=== PATIENT | male | born 1965 | race Caucasian/White ===

== ENCOUNTER 2018-10-10 11:22 | Emergency (ER) | payer OTHER ==
[~2018-10-10] VITALS: Ht 172.7 cm; Wt 108.9 kg
[~2018-10-10 11:22] MED LIST: ALPRAZOLAM0.25 MG PO; AZITHROMYCIN250 MG PO; Aspirin PO; BENICAR HCT 401 EACH PO; DEPO-TESTO200 MG/1 M IM; LOPRESSOR25 MG PO; LORATADINE10 MG PO; METFORMIN HCL500 MG PO; PLAVIX75 MG PO; TRICOR145 MG PO
[2018-10-10 12:46] LABS: BILIRUBIN,URINE NEGATIVE (NEGATIVE); CLARITY,URINE HAZY (CLEAR); COLOR,URINE YELLOW (YELLOW); KETONES,URINE NEGATIVE (NEGATIVE); LEUKOCYTE ESTERASE ,URINE NEGATIVE (NEGATIVE); NITRITE,URINE NEGATIVE (NEGATIVE); PROTEIN,URINE DIPSTICK TRACE (NEGATIVE); URINE UROBILINOGEN 0.2 mg/dL (0.2 - 1)
[2018-10-10 12:53] LABS: BACTERIA,URINE FEW /HPF; EPITHELIAL CELLS,URINE FEW /LPF; RBC,URINE 0-5 /HPF (0-5)
[2018-10-10 15:07] LABS: BASOPHILS % 0.4 % (0.0-1.0); EOSINOPHILS # (AUTO) 0.5 (0.0-0.4); EOSINOPHILS % 5.3 % (0.0-6.0); HEMATOCRIT 47.2 % (38.2-49.6); HEMOGLOBIN 14.7 g/dL (14.0-18.0); LYMPHOCYTES # (AUTO) 1.9 (1.0-3.2); LYMPHOCYTES % 21.3 % (18.0-39.1); MEAN CORPUSCULAR HEMOGLOBIN 22.1 pg (28-32); MEAN CORPUSCULAR HGB CONC 31.1 g/dL (31-35); MEAN CORPUSCULAR VOLUME 70.9 fL (81-99); MONOCYTES # (AUTO) 0.8 (0.2-0.8); MONOCYTES % 8.3 % (4.4-11.3); NEUTROPHILS # (AUTO) 5.8 (2.1-6.9); NEUTROPHILS % 63.6 % (38.7-80.0); PLATELET COUNT 360 x10e3/uL (140-360); RED BLOOD COUNT 6.66 x10e6/uL (4.3-5.7); RED CELL DISTRIBUTION WIDTH 18.2 % (11.7-14.4)
[2018-10-10 15:26] LABS: ALANINE AMINOTRANSFERASE 39 IU/L (0-55); ALBUMIN 4.1 g/dL (3.5-5.0); ALKALINE PHOSPHATASE 48 IU/L (40-150); ANION GAP 14.2 mmol/L (8-16); BLOOD UREA NITROGEN 10 mg/dL (7-26); BUN/CREATININE RATIO 9 (6-25); CALCIUM 9.7 mg/dL (8.4-10.2); CARBON DIOXIDE 24 mmol/L (22-29); CHLORIDE 102 mmol/L (98-107); CREATININE, SERUM 1.07 mg/dL (0.72-1.25); EST GLOMERULAR FILTRATION RATE > 60 ML/MIN (60-); GLUCOSE 129 mg/dL (74-118); POTASSIUM 4.2 mmol/L (3.5-5.1); SODIUM 136 mmol/L (136-145)
[2018-10-10] MEDS ORDERED: ONDANSETRON HCL INJ 2 MG/ML VIAL IV STA (15:42)
[2018-10-10] MEDS ORDERED: KETOROLAC TROMETHAMINE 30 MG/ML VIAL IV STA (15:42)
[2018-10-10] MEDS ORDERED: SODIUM CHLORIDE 0.9% 1000ML 1,000 ML IV ONE (15:45)
--- NOTE | 2018-10-10 17:34 | Diagnostic Imaging Report ---
EXAMINATION: CT of the abdomen and pelvis without contrast. TECHNIQUE: Spiral CT images of the abdomen and pelvis were performed from the lung bases to the lesser trochanters. No intravenous contrast was given per renal stone protocol. Coronal and sagittal reformatted images were obtained. COMPARISON: None. CLINICAL HISTORY:Right flank pain and hematuria DISCUSSION: ABSENCE OF INTRAVENOUS CONTRAST DECREASES SENSITIVITY FOR DETECTION OF FOCAL LESIONS AND VASCULAR PATHOLOGY. ABDOMEN/PELVIS: LOWER THORAX: Linear opacity in the anterior right lower lobe likely represent subsegmental atelectasis or scarring. HEPATOBILIARY: Diffuse hepatic steatosis. Liver is at the upper limit of normal measuring 16 cm in the right midclavicular line. Normal contour. No focal lesions. No intra or extrahepatic biliary ductal dilation. GALLBLADDER: Cholecystectomy clips. SPLEEN: No splenomegaly. PANCREAS: No focal masses or ductal dilatation. ADRENALS: 1.9 x 1.9 cm fat-containing lesion in the right adrenal gland (series 3, image 46 and sagittal image 60). Left adrenal gland is unremarkable. KIDNEYS/URETERS: Punctate radiopaque calculus at the right UVJ (series 3, image 153 and coronal image 77). No right renal calculi, hydronephrosis or hydroureter. No significant stranding. No contour abnormalities. No left renal or ureteral calculi, hydronephrosis or obstruction. No contour abnormalities or perinephric stranding. PELVIC ORGANS/BLADDER: Bladder is unremarkable, without focal lesions. Prostate is enlarged and contains dystrophic calcifications. PERITONEUM/RETROPERITONEUM: No free air or fluid. LYMPH NODES: No intra-abdominal,retroperitoneal, pelvic or inguinal lymphadenopathy. VESSELS: Unremarkable for noncontrast exam. GI TRACT: No bowel dilation or evidence of obstruction. Appendix is well identified and normal in caliber. BONES AND SOFT TISSUES: No aggressive lytic lesions. Mild degenerative disc changes at L5-S1. IMPRESSION: 1. Punctate nonobstructive calculus at the right UVJ. No other ureteral or any other renal calculi. No hydronephrosis or hydroureter. 2. Liver size and the upper limit of normal, with diffuse steatosis. 3. 1.9 cm right adrenal myelolipoma. No further follow-up or diagnostic imaging is indicated. Signed by: Dr. Roman Freeman M.D. on 10/10/2018 5:31 PM
[2018-10-10 18:38] VITALS: BP 151/88
== END 2018-10-10 18:44 | disposition home or self-care (01) ==
LOC: ER 11:22
DX: R10.31 Right lower quadrant pain (principal); R19.7 Diarrhea, unspecified; N20.0 Calculus of kidney; I10 Essential (primary) hypertension; E11.9 Type 2 diabetes mellitus without complications
CPT/HCPCS: 36415; 74176; 80053; 81001; 85025; 99284; J1885; J2405; J7030

== ENCOUNTER 2020-01-16 23:36 | Emergency (ER) | payer OTHER ==
[~2020-01-16] VITALS: Ht 172.7 cm; Wt 115.7 kg
--- OUTSIDE RECORDS SUMMARY | 2020-01-16 23:39 | XMS REPORT ---
[facility] Address Unknown Phone Unavailable Care Team Providers Care Manager Utilities Name Role Phone Margot CORREA Unavailable Unavailable Problems This patient has no known problems. Allergies, Adverse Reactions, Alerts This patient has no known allergies or adverse reactions. Medications This patient has no known medications. Results Test Description Test Time Test Comments Text Results Atomic Results Result Comments CT ABDOMEN/PELVIS WO 2018-10-10 17:26:00 [place] [address] Patient Name: REGINALD ROJAS MR #: [id number] : 1965 Age/Sex: 53/M Req #: [id number] Adm Physician: Ordered by: SHEYLA CAREY NP Report #: [id number] Location: ER Room/Bed: Procedure: [id number] CT/CT ABDOMEN/PELVIS WO Exam Date: 10/10/18 Exam Time: 1655 REPORT STATUS: Signed EXAMINATION: CT of the abdomen and pelvis without con trast. TECHNIQUE: Spiral CT images of the abdomen and pelvis were performed from the lung bases to the lesser trochanters. No intravenous contrast was given per renal stone protocol. Coronal and sagittal reformatted images were obtained. COMPARISON: None. CLINICAL HISTORY:Right flank pain and hematuria DISCUSSION: ABSENCE OF INTRAVENOUS CONTRAST DECREASES SENSITIVITY FOR DETECTION OF FOCAL LESIONS AND VASCULAR PATHOLOGY. ABDOMEN/PELVIS: LOWER THORAX: Linear opacity in the anterior right lower lobe likely represent subsegmental atelectasis or scarring. HEPATOBILIARY: Diffuse hepatic steatosis. Liver is at the upper limit of normal measuring 16 cm in the right midclavicular line. Normal contour. No focal lesions. No intra or extrahepatic biliary ductal dilation. GALLBLADDER: Cholecystectomy clips. SPLEEN: No splenomegaly. PANCREAS: No focal masses or ductal dilatation. ADRENALS: 1.9 x 1.9 cm fat-containing lesion in the right adrenal gland (series 3, image 46 and sagittal image 60). Left adrenal gland is unremarkable. KIDNEYS/URETERS: Punctate radiopaque calculus at the right UVJ (series 3, image 153 and coronal image 77). No right renal calculi, hydronephrosis or hydroureter. No significant stranding. No contour abnormalities. No left renal or ureteral calculi, hydronephrosis or obstruction. No contour abnormalities or perinephric stranding. PELVIC ORGANS/BLADDER: Bladder is unremarkable, without focal lesions. Prostate is enlarged and contains dystrophic calcifications. PERITONEUM/ RETROPERITONEUM: No free air or fluid. LYMPH NODES: No intra- abdominal,retroperitoneal, pelvic or inguinal lymphadenopathy. VESSELS: Unremarkable for noncontrast exam. GI TRACT: No bowel dilation or evidence of obstruction. Appendix is well identified and normal in caliber. BONES AND SOFT TISSUES: No aggressive lytic lesions. Mild degenerative disc changes at L5-S1. IMPRESSION: 1. Punctate nonobstructive calculus at the right UVJ. No other ureteral or any other renal calculi. No hydronephrosis or hydroureter. 2. Liver size and the upper limit of normal, with diffuse steatosis. 3. 1.9 cm right adrenal myelolipoma. No further follow-up or diagnostic imaging is indicated. Signed by: Dr. Karsten Freeman M.D. on 10/10/2018 5:31 PM Dictated By: KARSTEN FREEMAN MD 173 Transcribed By: SRINIVAS on 10/10/181730 COPY TO: SHEYLA CAREY NP
[2020-01-17] MEDS ORDERED: METOPROLOL TARTRATE INJ 1 MG/ML VIAL IV ONE
[2020-01-17 00:19] LABS: BASOPHILS % 0.4 % (0.0-1.0); EOSINOPHILS # (AUTO) 0.2 (0.0-0.4); EOSINOPHILS % 1.9 % (0.0-6.0); HEMATOCRIT 44.2 % (38.2-49.6); HEMOGLOBIN 15.2 g/dL (14.0-18.0); LYMPHOCYTES # (AUTO) 2.3 (1.0-3.2); LYMPHOCYTES % 25.1 % (18.0-39.1); MEAN CORPUSCULAR HEMOGLOBIN 29.8 pg (28-32); MEAN CORPUSCULAR HGB CONC 34.4 g/dL (31-35); MEAN CORPUSCULAR VOLUME 86.7 fL (81-99); MONOCYTES # (AUTO) 0.9 (0.2-0.8); MONOCYTES % 9.4 % (4.4-11.3); NEUTROPHILS # (AUTO) 5.6 (2.1-6.9); NEUTROPHILS % 61.4 % (38.7-80.0); PLATELET COUNT 277 x10e3/uL (140-360); RED CELL DISTRIBUTION WIDTH 15.9 % (11.7-14.4)
--- NOTE | 2020-01-17 00:22 | Diagnostic Imaging Report ---
Examination: Single AP view of the chest. COMPARISON: CT abdomen and pelvis 10/10/2018 INDICATION: Chest pain DISCUSSION: The lungs are well inflated. No focal consolidation, pleural effusion, or pneumothorax. Linear opacities in the right lower lung compatible with subsegmental atelectasis. Increased width of the cardiomediastinal contour shown to represent prominent epicardial fat on comparison CT. Tortuous thoracic aorta. No pulmonary edema. No acute osseous abnormalities. IMPRESSION: Subsegmental atelectasis in the right lung base. Otherwise no acute cardiopulmonary abnormality. Signed by: Dr. Jameson Nye M.D. on 01/17/2020 12:20 AM
[2020-01-17 00:36] LABS: INR 0.96; PROTHROMBIN TIME 13.4 seconds (11.9-14.5)
[2020-01-17 00:37] LABS: PARTIAL THROMBOPLASTIN TIME 26.3 seconds (23.8-35.5)
[2020-01-17 00:44] LABS: ALANINE AMINOTRANSFERASE 52 IU/L (0-55); ALBUMIN 3.8 g/dL (3.5-5.0); ALBUMIN/GLOBULIN RATIO 1.1 (0.8-2.0); ALKALINE PHOSPHATASE 50 IU/L (40-150); ANION GAP 16.8 mmol/L (8-16); BLOOD UREA NITROGEN 13 mg/dL (7-26); BUN/CREATININE RATIO 12 (6-25); CALCIUM 9.9 mg/dL (8.4-10.2); CARBON DIOXIDE 20 mmol/L (22-29); CHLORIDE 101 mmol/L (98-107); CREATINE KINASE 37 IU/L (30-200); CREATININE, SERUM 1.09 mg/dL (0.72-1.25); EST GLOMERULAR FILTRATION RATE > 60 ML/MIN (60-); GLUCOSE 229 mg/dL (74-118); POTASSIUM 3.8 mmol/L (3.5-5.1); SODIUM 134 mmol/L (136-145)
[2020-01-17 01:03] LABS: CREATINE KINASE MB < 1.00 ng/mL (0-4.3)
[2020-01-17 01:58] VITALS: BP 139/86
== END 2020-01-17 02:10 | disposition home or self-care (01) ==
LOC: ER 23:36
DX: R00.2 Palpitations (principal); R00.0 Tachycardia, unspecified; I10 Essential (primary) hypertension; E11.9 Type 2 diabetes mellitus without complications; E78.5 Hyperlipidemia, unspecified; F41.9 Anxiety disorder, unspecified
CPT/HCPCS: 36415; 71045; 80053; 82550; 82553; 83880; 84484; 85025; 85379; 85610; 85730; 93005; 99284